=== PATIENT | male | born 1940 | race Caucasian/White ===

== ENCOUNTER 2017-10-24 15:52 | Observation (INO) | payer MEDICARE, OTHER ==
[~2017-10-24] VITALS: Ht 172.7 cm; Wt 81.7 kg
[~2017-10-24 15:52] MED LIST: ALBU90OI6 INH; AMLO10 PO; AMLO5 PO; ASCO500 PO; ASPI325; ASPI325 PO; ASPI81CH PO; ATENOLOL; ATOR10 PO; ATOR20 PO; Aspir-Trin325 MG PO; Aspirin EC81 MG PO; BRIM.15SO BOTHEYES; BRIM.15SO OD; BUDE6HFA INH; Bactrim Ds Tab1 EACH PO; CHOL10002 PO; CIPR500 PO; CLOP75 PO; CYAN1000 PO; Caltrate Plus1 EACH PO; Coq-10100 MG PO; DONE10 PO; Daily Multiple1 EACH PO; ELIQUIS2.5 MG PO; FISH1000 PO; FLAX PO; FURO40 MT; FURO40 PO; FURO80 PO; HYDCHL12.5 PO; HYDR1TAB94 PO; INSLIS75I; K-Dur20 MEQ PO; LEVFLO500 PO; LISI20; LISI20 MT; LISI5 PO; LISINOPRIL 10MG PO; MAGOXI400 PO; MEMANTINE HCL10 MG PO; METO2.5 MT; METO5 PO; METRIBP PO; MOME220I INH; MULTIVITAMIN PO; MULVITA; MULVITB&C PO; MULVITMIND PO; NIAC500; NITR.4SL SL; OMEP10ER PO; OMEP20ER PO; OMEPRAZOLE MAGN20 MG PO; OXYACE5T PO; POTCHL10ER PO; POTCHL20ER MT; POTCHL20ER PO; PROM25 PO; PSYL5.85P PO; Prinivil10 MG PO; Super B Comple150 MG PO; TAMS.4ER PO; TIOT18 INH; TRIHYD253A PO; UBID10 PO; UBID100; V R FATIGUE RE PO; VYTORIN
[2017-10-24] MEDS ORDERED: METO25ER PO (18:52)
[2017-10-24] MEDS ORDERED: FISH OIL 1,0001 EAC1 PO (18:54)
[2017-10-24] MEDS ORDERED: HYDROCORTISONE TOP (18:55)
== END 2017-10-25 17:55 ==
LOC: ER 15:52 → MEDS 15:53
DX: R40.20 Unspecified coma (principal); I50.30 Unspecified diastolic (congestive) heart failure; E11.9 Type 2 diabetes mellitus without complications; I25.10 Atherosclerotic heart disease of native coronary artery without angina pectoris; Z95.5 Presence of coronary angioplasty implant and graft; Z98.890 Other specified postprocedural states; Z95.0 Presence of cardiac pacemaker; Z79.899 Other long term (current) drug therapy; Z79.82 Long term (current) use of aspirin
CPT/HCPCS: 99285; G0378